=== PATIENT | female | born 1970 | race Caucasian/White ===

== ENCOUNTER 2016-06-17 15:06 | Emergency (ER) | payer OTHER ==
--- NOTE | 2016-06-17 15:34 | EDM.PDOC ---
ED HPI GI/ABDOMINAL - General Chief Complaint: Abdominal Pain Stated Complaint: ABDOMINAL PAIN Time Seen by Provider: 06/17/16 15:13 Source of Information: Reports: Patient History Limitations: Reports: No limitations - History of Present Illness INITIAL COMMENTS - FREE TEXT/NARRATIVE: History of present illness: [] Patient has a known history of gallbladder disease in started having abdominal pain left upper quadrant yesterday. Patient denies any fevers, chills , vomiting or diarrhea. She states she has had nausea. Patient cannot recall it being that brought this pain on and denies any trauma. Review of systems: As per history of present illness and below otherwise all systems reviewed and negative. Past medical history: As per history of present illness and as reviewed below otherwise noncontributory. Surgical history: As per history of present illness and as reviewed below otherwise noncontributory. Social history: No reported history of drug or alcohol abuse. Family history: As per history of present illness and as reviewed below otherwise noncontributory. Physical exam: General: Well developed, well nourished in NAD HEENT: Atraumatic, normocephalic, pupils reactive, negative for conjunctival pallor or scleral icterus, mucous membranes moist, throat clear, neck supple, nontender, trachea midline. Lungs: Clear to auscultation, breath sounds equal bilaterally, chest nontender. Heart: S1S2, regular, negative for clicks, rubs, or JVD. Abdomen: Soft, nondistended, tender in left upper quadrant without rebound or guarding. Negative for masses or hepatosplenomegaly. Negative for costovertebral tenderness. Pelvis: Stable nontender. Genitourinary: Deferred. Rectal: Deferred. Extremities: Atraumatic, negative for cords or calf pain. Neurovascular unremarkable. Neuro: Awake, alert, oriented. Cranial nerves II through XII unremarkable. Cerebellum unremarkable. Motor and sensory unremarkable throughout. Exam nonfocal. Diagnostics: [] Labs and ultrasound negative for cholecystitis questionable gallstone polyps versus stones Therapeutics: [] Tramadol for pain Impression: [] Cholelithiasis Plan: [] Followup Gen. surgery Definitive disposition and diagnosis as appropriate pending reevaluation and review of above. - Related Data Allergies/ADRs: Allergies Allergy/AdvReac Type Severity Reaction Status Date / Time Latex, Natural Rubber Allergy Burning Verified 06/17/16 15:22 Sulfa (Sulfonamide Allergy Cannot Verified 06/17/16 15:22 Antibiotics) Remember Home Meds: Home Meds SUMAtriptan [Imitrex] 0 mg PO ASDIRECTED PRN 04/17/14 [History] Zolpidem Tartrate [Ambien] 5 mg PO ASDIRECTED PRN 04/17/14 [History] DULoxetine [Cymbalta] 60 mg PO DAILY 06/17/16 [History] Lorcaserin HCl [Belviq Xr] 20 mg PO DAILY 06/17/16 [History] Metoprolol Succinate [Toprol XL 100mg] 100 mg PO DAILY 06/17/16 [History] traMADol HCl [Tramadol HCl] 50 mg PO Q6H PRN #16 tablet 06/17/16 [Rx] Past Medical History - Past Surgical History Other Musculoskeletal Surgeries/Procedures:: 3 foot surgeries in 2007, 2008, 2009 Social & Family History - Tobacco Use Smoking Status *Q: Current Every Day Smoker Years of Tobacco use: 15 Packs/Tins Daily: 0.5 Used Tobacco, but Quit: Yes Month Tobacco Last Used: 01/12/16 Second Hand Smoke Exposure: No - Caffeine Use Caffeine Use: Reports: Soda - Alcohol Use Days Per Week of Alcohol Use: 0 - Recreational Drug Use Recreational Drug Use: No ED ROS GENERAL - Review of Systems Review Of Systems: See Below (See history of present illness) ED EXAM, GI/ABD - Physical Exam Exam: See Below (See history of present illness) Course - Vital Signs Last Recorded V/S: Last Vital Signs Temp 37.3 C 06/17/16 15:29 Pulse 81 06/17/16 15:29 Resp 20 06/17/16 15:29 BP 135/81 06/17/16 15:29 Pulse Ox 98 06/17/16 15:29 - Orders/Labs/Meds Orders: Active Orders 24 hr Category Date Time Status Abdomen Ltd [US] Stat Exams 06/17/16 16:29 Taken UA W/MICROSCOPIC [URIN] Stat Lab 06/17/16 17:30 Received Sodium Chloride 0.9% [Normal Saline] 1,000 ml Med 06/17/16 15:45 Active IV .BOLUS Sodium Chloride 0.9% [Saline Flush] Med 06/17/16 15:39 Active 10 ml FLUSH ASDIRECTED PRN Sodium Chloride 0.9% [Saline Flush] Med 06/17/16 15:39 Active 2.5 ml FLUSH ASDIRECTED PRN Peripheral IV Insertion Adult [OM.PC] Stat Oth 06/17/16 15:38 Ordered Medication Orders Sodium Chloride (Normal Saline) 1,000 mls @ 999 mls/hr IV .BOLUS DULCE Last Admin: 06/17/16 16:06 Dose: 999 mls/hr Sodium Chloride (Saline Flush) 10 ml FLUSH ASDIRECTED PRN PRN Reason: Keep Vein Open Sodium Chloride (Saline Flush) 2.5 ml FLUSH ASDIRECTED PRN PRN Reason: Keep Vein Open Labs: Laboratory Tests 06/17/16 06/17/16 Range/Units 15:40 15:40 WBC 8.12 (4.0-11.0) K/uL RBC 4.48 (4.30-5.90) M/uL Hgb 12.3 (12.0-16.0) g/dL Hct 37.1 (36.0-46.0) % MCV 82.8 (80.0-98.0) fL MCH 27.5 (27.0-32.0) pg MCHC 33.2 (31.0-37.0) g/dL RDW Std Deviation 39.1 (28.0-62.0) fl RDW Coeff of Liz 13 (11.0-15.0) % Plt Count 260 (150-400) K/uL MPV 9.80 (7.40-12.00) fL Neut % (Auto) 55.3 (48.0-80.0) % Lymph % (Auto) 33.3 (16.0-40.0) % Garza % (Auto) 7.1 (0.0-15.0) % Eos % (Auto) 4.1 (0.0-7.0) % Baso % (Auto) 0.2 (0.0-1.5) % Neut # 4.5 (1.4-5.7) K/uL Lymph # 2.7 H (0.6-2.4) K/uL Garza # 0.6 (0.0-0.8) K/uL Eos # 0.3 (0.0-0.7) K/uL Baso # 0.0 (0.0-0.1) K/uL Nucleated RBC % 0.0 /100WBC Nucleated RBCs # 0 K/uL Sodium 139 (136-146) mmol/L Potassium 3.9 (3.5-5.1) mmol/L Chloride 108 (98-110) mmol/L Carbon Dioxide 22 (21-31) mmol/L BUN 15 (6.0-23.0) mg/dL Creatinine 0.9 (0.6-1.5) mg/dL Est Cr Clr Drug Dosing 83.36 mL/min Estimated GFR (MDRD) > 60.0 ml/min Glucose 91 (60-110) mg/dL Calcium 8.5 L (8.8-10.8) mg/dL Total Bilirubin 0.4 (0.1-1.5) mg/dL AST 20 (5-40) IU/L ALT 22 (8-54) IU/L Alkaline Phosphatase 82 (40-150) Total Protein 7.1 (6.0-8.0) g/dL Albumin 3.7 (3.5-5.0) g/dL Globulin 3.4 (2.0-3.5) g/dL Albumin/Globulin Ratio 1.1 L (1.3-2.8) Lipase 21 (7-80) U/L Meds: Medications Generic Name Dose Route Start Last Admin Trade Name Freq PRN Reason Stop Dose Admin Sodium Chloride 1,000 mls @ 999 mls/hr 06/17/16 15:45 06/17/16 16:06 Normal Saline IV 999 mls/hr .BOLUS DULCE Administration Sodium Chloride 10 ml 06/17/16 15:39 Saline Flush FLUSH ASDIRECTED PRN Keep Vein Open Sodium Chloride 2.5 ml 06/17/16 15:39 Saline Flush FLUSH ASDIRECTED PRN Keep Vein Open Discontinued Medications Generic Name Dose Route Start Last Admin Trade Name Freq PRN Reason Stop Dose Admin Hyoscyamine 0.125 mg 06/17/16 15:41 06/17/16 16:15 Hyomax-Sl SL 06/17/16 15:42 0.125 mg ONETIME ONE Administration Ondansetron HCl 4 mg 06/17/16 15:41 06/17/16 16:11 Zofran IVPUSH 06/17/16 15:42 4 mg ONETIME ONE Administration Departure - Departure Time of Disposition: 17:46 Disposition: Home, Self-Care 01 Condition: good Clinical Impression: Cholelithiasis Qualifiers: Cholelithiasis location: gallbladder Cholecystitis presence: without cholecystitis Biliary obstruction: without biliary obstruction Qualified Code(s) : K80.20 - Calculus of gallbladder without cholecystitis without obstruction Referrals: Candida Vidal DO [Primary Care Provider] - Forms: ED Department Discharge Additional Instructions: The following information is given to patients seen in the emergency department who are being discharged to home. This information is to outline your options for follow-up care. We provide all patients seen in our emergency department with a follow-up referral. The need for follow-up, as well as the timing and circumstances, are variable depending upon the specifics of your emergency department visit. If you don't have a primary care physician on staff, we will provide you with a referral. We always advise you to contact your personal physician following an emergency department visit to inform them of the circumstance of the visit and for follow-up with them and/or the need for any referrals to a consulting specialist. The emergency department will also refer you to a specialist when appropriate. This referral assures that you have the opportunity for follow-up care with a specialist. All of these measure are taken in an effort to provide you with optimal care, which includes your follow-up. Under all circumstances we always encourage you to contact your private physician who remains a resource for coordinating your care. When calling for follow-up care, please make the office aware that this follow-up is from your recent emergency room visit. If for any reason you are refused follow-up, please contact the [facility] Emergency Department at and asked to speak to the emergency department charge nurse. Tramadol for pain 16 tablets no refills [facility] [address] [place] [id number] - My Orders Last 24 Hours: My Active Orders 06/17/16 15:38 Peripheral IV Insertion Adult [OM.PC] Stat 06/17/16 15:39 Sodium Chloride 0.9% [Saline Flush] 10 ml FLUSH ASDIRECTED PRN Sodium Chloride 0.9% [Saline Flush] 2.5 ml FLUSH ASDIRECTED PRN 06/17/16 15:45 Sodium Chloride 0.9% [Normal Saline] 1,000 ml IV .BOLUS 06/17/16 16:29 Abdomen Ltd [US] Stat 06/17/16 17:30 UA W/MICROSCOPIC [URIN] Stat - Assessment/Plan Last 24 Hours: My Active Orders 06/17/16 15:38 Peripheral IV Insertion Adult [OM.PC] Stat 06/17/16 15:39 Sodium Chloride 0.9% [Saline Flush] 10 ml FLUSH ASDIRECTED PRN Sodium Chloride 0.9% [Saline Flush] 2.5 ml FLUSH ASDIRECTED PRN 06/17/16 15:45 Sodium Chloride 0.9% [Normal Saline] 1,000 ml IV .BOLUS 06/17/16 16:29 Abdomen Ltd [US] Stat 06/17/16 17:30 UA W/MICROSCOPIC [URIN] Stat
[2016-06-17] MEDS ORDERED: Sodium Chloride 0.9% 2.5 ML Syringe FLUSH PRN (15:39)
[2016-06-17] MEDS ORDERED: Sodium Chloride 0.9% 10 ML Syringe FLUSH PRN (15:39)
[2016-06-17] MEDS ORDERED: Ondansetron 4 MG/2 ML SDV IVPUSH ONE (15:41)
[2016-06-17] MEDS ORDERED: Hyoscyamine 0.125 MG Tab.SL SL ONE (15:41)
[2016-06-17] MEDS ORDERED: Sodium Chloride 0.9% 1,000 ML IV SCH (15:45)
[2016-06-17 16:17] LABS: CHLORIDE,CL 108 mmol/L (98-110); SODIUM,NA 139 mmol/L (136-146)
[2016-06-17] MEDS ORDERED: traMADol 50 MG Tab PO ONE (17:44)
[2016-06-17 17:55] VITALS: BP 158/73
--- NOTE | 2016-06-18 13:23 | US ---
EXAM DATE: 06/17/16 PATIENT'S AGE: 45 Patient: BRENT GARG Facility: [place], [place] Site . Site : 1970 Study: US Abdomen [id number]/7/2017 5:09:11 PM Ordering Physician: Marcus Wilkes Final Report: INDICATION: Right infrascapular pain. TECHNIQUE: Right upper quadrant ultrasound. COMPARISON: February 04, 2016. FINDINGS: Nonvisualization of the pancreas. There are multiple echogenic foci in the gallbladder some of which are very likely gallbladder polyps. The possibility of gallstones cannot be excluded. The images provided do not demonstrate movement of the echogenic foci. No sonographic Broussard`s sign. No gallbladder wall thickening. No pericholecystic fluid. No biliary dilatation. The common bile duct measures 3.4 mm. The gallbladder wall measures 1.8 mm. The liver appears to be of decreased echogenicity. This may be partly technical. The liver is measured at 20.1 cm in cephalocaudal extent which would suggest hepatomegaly. No right upper quadrant ascites. No right-sided hydronephrosis. The right kidney measures 12.3 x 5.1 x 5.3 cm. The visualized inferior vena cava is within normal limits. Nonvisualization of the aorta. IMPRESSION: 1. Multiple echogenic foci in the gallbladder. These could all reflect polyps. Stones cannot be excluded. 2. No sonographic Broussard`s sign. No biliary dilatation. No right upper quadrant ascites. 3. Possible hepatomegaly. 4. No right-sided hydronephrosis. Nonvisualization of the pancreas and abdominal aorta. Dictated by Lorenzo Pittman MD @ 06/17/2016 5:28:38 PM Dictated by: Lorenzo Pittman MD @ 06/17/2016 17:28:54 (Electronic Signature) Report Signed by Proxy and Original Signed Document filed in the Medical Record. [facility]ITAL[facility]
== END 2016-06-17 17:57 | disposition home or self-care (01) ==
LOC: MW.ED 15:06
DX: K80.20 Calculus of gallbladder without cholecystitis without obstruction (principal); F17.210 Nicotine dependence, cigarettes, uncomplicated; Z88.0 Allergy status to penicillin; Z91.040 Latex allergy status; Z79.899 Other long term (current) drug therapy
CPT/HCPCS: 76705; 80053; 81001; 83690; 85025; 96361; 96374; 99284; A9270; J2405; J7040

== ENCOUNTER 2016-06-30 06:21 | Day surgery (SDC) | payer OTHER ==
[~2016-06-30 06:21] MED LIST: Lactated Ringers 1,000 ML IV SCH; Sodium Chloride 0.9% 10 ML Syringe FLUSH PRN; Sodium Chloride 0.9% 2.5 ML Syringe FLUSH PRN; ceFAZolin 2 GM in Premix Bag 1 BAG IV ONE
[2016-06-30 06:43] VITALS: BP 147/77
[2016-06-30] MEDS ORDERED: Scopolamine 1.5 MG Transdermal Patch TRDERM PRN (06:57)
--- NOTE | 2016-06-30 07:05 | PCM.PREANE ---
Preanesthetic Assessment - Anesthesia/Transfusion/Family Hx Anesthesia History: Prior Anesthesia Without Reaction Other Type of Anesthesia Reaction Comment: states "woke up" during tonsillectomy as a child Family History of Anesthesia Reaction: No Transfusion History: No Prior Transfusion(s) - Review of Systems General: No Symptoms Pulmonary: No Symptoms Cardiovascular: No Symptoms Gastrointestinal: No symptoms Neurological: No Symptoms Other: Reports: None - Physical Assessment NPO Status Date: 06/30/16 NPO Status Time: 19:00 O2 Sat by Pulse Oximetry: 98 Respiratory Rate: 18 Vital Signs: Last Vital Signs Temp 36.7 C 06/30/16 06:41 Pulse 79 06/30/16 06:41 Resp 18 06/30/16 06:41 BP 147/77 H 06/30/16 06:41 Pulse Ox 98 06/30/16 06:41 Height: 1.75 m Weight: 119.748 kg ASA Class: 2 Mental Status: Alert & Oriented x3 Airway Class: Mallampati = 1 Dentition: Reports: Normal Dentition Lungs: Clear to auscultation Cardiovascular: Regular Rate - Allergies Allergies/Adverse Reactions: Allergies Allergy/AdvReac Type Severity Reaction Status Date / Time bupropion [From Wellbutrin] Allergy Rash Verified 06/26/16 14:50 Latex, Natural Rubber Allergy Burning Verified 06/17/16 15:22 Sulfa (Sulfonamide Allergy Cannot Verified 06/17/16 15:22 Antibiotics) Remember - Blood Blood Available: No - Anesthesia Plan Pre-Op Medication Ordered: None Beta Donna: Metoprolol Med Last Dose Date: 06/30/16 Med Last Dose Time: 07:30 - Acknowledgements Anesthesia Type Planned: General Anesthesia Pt an Appropriate Candidate for the Planned Anesthesia: Yes Alternatives and Risks of Anesthesia Discussed w Pt/Guardian: Yes Pt/Guardian Understands and Agrees with Anesthesia Plan: Yes PreAnesthesia Questionnaire Other HEENT History: wears glasses/contacts Cardiovascular History: Reports: Hypertension Other Cardiovascular History: hx of chest pain, had angiogram with no treatment....no chest pain since angiogram Respiratory History: Reports: Asthma, Sleep apnea Other Respiratory History: uses CPAP Gastrointestinal History: Reports: GERD Genitourinary History: Reports: None STONER HAND History: Reports: Other OB/BYN History: Ceasarean Section Musculoskeletal History: Reports: Fracture, Fibromyalgia Other Musculoskeletal History: left foot Neurological History: Reports: None Psychiatric History: Reports: Depression Endocrine/Metabolic History: Reports: Obesity/BMI 30+ Hematologic History: Reports: None Immunologic History: Reports: None Oncologic (Cancer) History: Reports: None Dermatologic History: Reports: None Other Dermatologic History: has dry, cracked hands - Past Surgical History Head Surgeries/Procedures: Reports: None HEENT Surgical History: Reports: Myringotomy w tube(s), Tonsillectomy Cardiovascular Surgical History: Reports: None Respiratory Surgical History: Reports: None Female Surgical History: Reports: section Endocrine Surgical History: Reports: None Neurological Surgical History: Reports: None Musculoskeletal Surgical History: Reports: ORIF Other Musculoskeletal Surgeries/Procedures:: left foot x3, has hardware implanted Oncologic Surgical History: Reports: None Dermatological Surgical History: Reports: None - SUBSTANCE USE Smoking Status *Q: Current Every Day Smoker Tobacco Use Within Last Twelve Months: Cigarettes Second Hand Smoke Exposure: No Days Per Week of Alcohol Use: 0 Recreational Drug Use History: No - HOME MEDS Home Medications: Home Meds Zolpidem Tartrate [Ambien] 10 mg PO BEDTIME PRN 04/17/14 [History] DULoxetine [Cymbalta] 60 mg PO DAILY 06/17/16 [History] Lorcaserin HCl [Belviq Xr] 20 mg PO DAILY 06/17/16 [History] Metoprolol Succinate [Toprol XL 100mg] 100 mg PO QAM 06/17/16 [History] Albuterol Sulfate [Proair Hfa] 2 puff INH DAILY PRN 06/26/16 [History] - CURRENT (IN HOUSE) MEDS Current Meds: Current Medications Lactated Ringer's (Ringers, Lactated) 1,000 mls @ 125 mls/hr IV ASDIRECTED DULCE Last Admin: 06/30/16 06:43 Dose: 125 mls/hr Scopolamine (Transderm-Scop) 1.5 mg TRDERM Q72H PRN PRN Reason: Nausea/Vomiting Sodium Chloride (Saline Flush) 10 ml FLUSH ASDIRECTED PRN PRN Reason: Keep Vein Open Sodium Chloride (Saline Flush) 2.5 ml FLUSH ASDIRECTED PRN PRN Reason: Keep Vein Open Discontinued Medications Cefazolin Sodium/Dextrose 2 gm (/ Premix) 50 mls @ 100 mls/hr IV ONETIME ONE Stop: 06/26/16 15:15 Preanesthetic Assessment - ANESTHESIA/TRANSFUSION/FAMILY HX Anesthesia/Transfusion History: Prior Anesthesia Other Type of Anesthesia Reaction Comment: states "woke up" during tonsillectomy as a child Family History of Anesthesia Reaction: No - PHYSICAL ASSESSMENT O2 Sat by Pulse Oximetry: 98 RR: 18 Vital Signs: Last Vital Signs Temp 36.7 C 06/30/16 06:41 Pulse 79 06/30/16 06:41 Resp 18 06/30/16 06:41 BP 147/77 H 06/30/16 06:41 Pulse Ox 98 06/30/16 06:41 Height: 1.75 m Weight: 119.748 kg - ALLERGIES Allergies/Adverse Reactions: Allergies Allergy/AdvReac Type Severity Reaction Status Date / Time bupropion [From Wellbutrin] Allergy Rash Verified 06/26/16 14:50 Latex, Natural Rubber Allergy Burning Verified 06/17/16 15:22 Sulfa (Sulfonamide Allergy Cannot Verified 06/17/16 15:22 Antibiotics) Remember
[2016-06-30] MEDS ORDERED: Midazolam 1 MG/ML 2 ML SDV ONE (07:10)
[2016-06-30] MEDS ORDERED: Rocuronium 10 MG/ML 10 ML Syringe ONE (07:10)
[2016-06-30] MEDS ORDERED: Ondansetron 4 MG/2 ML SDV ONE (07:10)
[2016-06-30] MEDS ORDERED: Propofol 200 MG/20 ML SDV ONE (07:10)
[2016-06-30] MEDS ORDERED: fentaNYL 250 MCG/5 ML SDV ONE (07:10)
[2016-06-30] MEDS ORDERED: Lidocaine 2% 5 ML SDV ONE (07:10)
[2016-06-30] MEDS ORDERED: Bupivacaine 0.5% 30 ML SDV ONE (07:26)
--- NOTE | 2016-06-30 07:34 | PCM.SN ---
- Free Text/Narrative Note: Review of medical record reveals cardiac workup in the fall of 2014 for chest pain, pt found to be in afib, had ant ischemia on stress test. had heart cath showing plaque, managed medically, unknown severity. Echo showed mod TR and Mod MR, with EF of 20% during afib. EF from stress test was 51%. Will cancel surgery today pending review of heart cath results from 2014, and a NEW cardiac ultrasound to follow up on the last EF of 21%. Pt clinically has > 4 METS activity, limited only by pain from foot surgery.
--- NOTE | 2016-06-30 08:21 | PCM.SN ---
- Free Text/Narrative Note: Discovered this am that patient had cardiac episode last fall. Patient was in atrial fibrillation and had an EF of 20-25%. She had a follow up angiogram that showed improved EF with a small area of anterior wall ischemia. There has been no follow up since. Given this is an elective procedure, I advised the patient to have an echo and pre-operative clearance before this procedure. If she develops overwhelming pain or jaundice in the meantime she should present to the ED to rule out choledocholithiasis.
--- NOTE | 2016-07-11 10:30 | PCM.HPR ---
H & P Addendum review - H & P Addendum Review Date of Original H & P: 06/27/16 Date Reviewed: 07/11/16 Time Reviewed: 10:00 Patient was examined: Changes (Please see H and P addendum in the chart.)
== END 2016-06-30 07:41 ==
LOC: MW.SDS 06:21
PROVIDERS: ATTEND Surgery
DX: K80.20 Calculus of gallbladder without cholecystitis without obstruction (principal); Z53.8 Procedure and treatment not carried out for other reasons; I48.91 Unspecified atrial fibrillation; I25.9 Chronic ischemic heart disease, unspecified; E66.9 Obesity, unspecified; F32.9 Major depressive disorder, single episode, unspecified; I10 Essential (primary) hypertension; G47.33 Obstructive sleep apnea (adult) (pediatric); J45.909 Unspecified asthma, uncomplicated; M79.7 Fibromyalgia; F17.210 Nicotine dependence, cigarettes, uncomplicated; Z88.2 Allergy status to sulfonamides; Z88.8 Allergy status to other drugs, medicaments and biological substances; Z91.040 Latex allergy status; Z99.89 Dependence on other enabling machines and devices; Z79.899 Other long term (current) drug therapy; Z98.890 Other specified postprocedural states; Z68.39 Body mass index [BMI] 39.0-39.9, adult
CPT/HCPCS: 81025; A9270; J7120; J2250; J2405; J2704; J3010

== ENCOUNTER → 2016-07-02 | Outpatient (CLI) | payer OTHER | LOC: MW.CHIM 06-30 11:18 | PROVIDERS: ATTEND Internal Medicine | DX: I48.91 Unspecified atrial fibrillation (principal) | CPT/HCPCS: 93005 ==

== ENCOUNTER → 2016-07-07 | Outpatient (CLI) | payer OTHER ==
--- NOTE | 2016-07-10 14:07 | ECHO ---
The echocardiogram report can be seen in this patient's EMR in the Reports section. PHILL
== END | disposition home or self-care (01) ==
LOC: MW.US 13:45
PROVIDERS: ATTEND Surgery
DX: I48.91 Unspecified atrial fibrillation (principal)
CPT/HCPCS: 93306

== ENCOUNTER 2016-07-14 06:29 | Day surgery (SDC) | payer OTHER ==
[~2016-07-14 06:29] MED LIST changes: -Sodium Chloride 0.9% 10 ML Syringe FLUSH PRN; -Sodium Chloride 0.9% 2.5 ML Syringe FLUSH PRN
[2016-07-14] MEDS ORDERED: Ondansetron 4 MG/2 ML SDV ONE (07:09)
[2016-07-14] MEDS ORDERED: Midazolam 1 MG/ML 2 ML SDV ONE (07:09)
[2016-07-14] MEDS ORDERED: fentaNYL 250 MCG/5 ML SDV ONE (07:09)
[2016-07-14] MEDS ORDERED: Rocuronium 10 MG/ML 10 ML Syringe ONE (07:09)
[2016-07-14] MEDS ORDERED: Lidocaine 2% 5 ML SDV ONE (07:09)
[2016-07-14] MEDS ORDERED: Propofol 200 MG/20 ML SDV ONE (07:09)
[2016-07-14] MEDS ORDERED: Succinylcholine/Normal Saline 200 MG/10 ML Syringe ONE (07:11)
[2016-07-14] MEDS ORDERED: Neostigmine Methylsulfate 1 MG/ML 5 ML Syringe ONE (07:11)
[2016-07-14] MEDS ORDERED: Citric Acid/Sodium Citrate Solution 30 ML Cup PO ONE (07:11)
--- NOTE | 2016-07-14 07:13 | PCM.PREANE ---
Preanesthetic Assessment - Anesthesia/Transfusion/Family Hx Anesthesia History: Prior Anesthesia Without Reaction Other Type of Anesthesia Reaction Comment: states "woke up" during tonsillectomy as a child Family History of Anesthesia Reaction: No Transfusion History: No Prior Transfusion(s) - Review of Systems General: No Symptoms Pulmonary: No Symptoms Cardiovascular: No Symptoms Gastrointestinal: No symptoms Neurological: No Symptoms Other: Reports: None - Physical Assessment NPO Status Date: 07/13/16 O2 Sat by Pulse Oximetry: 96 Respiratory Rate: 18 Vital Signs: Last Vital Signs Temp 36.9 C 07/14/16 06:46 Pulse 90 07/14/16 06:46 Resp 18 07/14/16 06:46 BP 143/92 H 07/14/16 06:46 Pulse Ox 96 07/14/16 06:46 Height: 1.75 m Weight: 119.748 kg ASA Class: 2 Mental Status: Alert & Oriented x3 Airway Class: Mallampati = 2 Dentition: Reports: Normal Dentition ROM/Head Extension: Full Lungs: Clear to auscultation, Normal respiratory effort Cardiovascular: Regular Rate, Regular Rhythm - Lab Values: Laboratory Last Values Urine HCG, Qual NEGATIVE (NEGATIVE) 07/14/16 06:40 - Allergies Allergies/Adverse Reactions: Allergies Allergy/AdvReac Type Severity Reaction Status Date / Time bupropion [From Wellbutrin] Allergy Rash Verified 06/26/16 14:50 Latex, Natural Rubber Allergy Burning Verified 06/17/16 15:22 Sulfa (Sulfonamide Allergy Hives Verified 07/10/16 08:44 Antibiotics) - Anesthesia Plan Pre-Op Medication Ordered: Antacids - Acknowledgements Anesthesia Type Planned: General Anesthesia Pt an Appropriate Candidate for the Planned Anesthesia: Yes Alternatives and Risks of Anesthesia Discussed w Pt/Guardian: Yes Pt/Guardian Understands and Agrees with Anesthesia Plan: Yes Additional Comments: Echo from last week showed 50-55% EF, normal valves. 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: Other OB/BYN History: Ceasarean Section Musculoskeletal History: Reports: Fracture, Fibromyalgia Other Musculoskeletal History: left foot Neurological History: Reports: None Psychiatric History: Reports: Depression Endocrine/Metabolic History: Reports: Obesity/BMI 30+ Hematologic History: Reports: None Immunologic History: Reports: None Oncologic (Cancer) History: Reports: None Dermatologic History: Reports: None Other Dermatologic History: has dry, cracked hands - Past Surgical History Head Surgeries/Procedures: Reports: None HEENT Surgical History: Reports: Myringotomy w tube(s), Tonsillectomy Cardiovascular Surgical History: Reports: None Respiratory Surgical History: Reports: None Female Surgical History: Reports: section Endocrine Surgical History: Reports: None Neurological Surgical History: Reports: None Musculoskeletal Surgical History: Reports: ORIF Other Musculoskeletal Surgeries/Procedures:: left foot x3, has hardware implanted Oncologic Surgical History: Reports: None Dermatological Surgical History: Reports: None - SUBSTANCE USE Smoking Status *Q: Current Every Day Smoker Tobacco Use Within Last Twelve Months: Cigarettes Second Hand Smoke Exposure: No Days Per Week of Alcohol Use: 0 Recreational Drug Use History: No - HOME MEDS Home Medications: Home Meds Zolpidem Tartrate [Ambien] 10 mg PO BEDTIME PRN 04/17/14 [History] DULoxetine [Cymbalta] 60 mg PO DAILY 06/17/16 [History] Lorcaserin HCl [Belviq Xr] 20 mg PO DAILY 06/17/16 [History] Metoprolol Succinate [Toprol XL 100mg] 50 mg PO QAM 06/17/16 [History] Albuterol Sulfate [Proair Hfa] 2 puff INH DAILY PRN 06/26/16 [History] Nitroglycerin 0.4 mg SL ASDIRECTED PRN 07/10/16 [History] SUMAtriptan [Imitrex] 1 tab PO ASDIRECTED PRN 07/10/16 [History] oxyCODONE HCl/Acetaminophen [oxyCODONE-Acetaminophen 5-325] 1 tab PO ASDIRECTED PRN 07/10/16 [History] - CURRENT (IN HOUSE) MEDS Current Meds: Current Medications Lactated Ringer's (Ringers, Lactated) 1,000 mls @ 125 mls/hr IV ASDIRECTED DULCE Last Admin: 07/14/16 06:49 Dose: 125 mls/hr Discontinued Medications Cefazolin Sodium/Dextrose 2 gm (/ Premix) 50 mls @ 100 mls/hr IV ONETIME ONE Stop: 07/11/16 13:20 Preanesthetic Assessment - ANESTHESIA/TRANSFUSION/FAMILY HX Anesthesia/Transfusion History: Prior Anesthesia Other Type of Anesthesia Reaction Comment: states "woke up" during tonsillectomy as a child Family History of Anesthesia Reaction: No - PHYSICAL ASSESSMENT O2 Sat by Pulse Oximetry: 96 RR: 18 Vital Signs: Last Vital Signs Temp 36.9 C 07/14/16 06:46 Pulse 90 07/14/16 06:46 Resp 18 07/14/16 06:46 BP 143/92 H 07/14/16 06:46 Pulse Ox 96 07/14/16 06:46 Height: 1.75 m Weight: 119.748 kg - LAB Values: Laboratory Last Values Urine HCG, Qual NEGATIVE (NEGATIVE) 07/14/16 06:40 - ALLERGIES Allergies/Adverse Reactions: Allergies Allergy/AdvReac Type Severity Reaction Status Date / Time bupropion [From Wellbutrin] Allergy Rash Verified 06/26/16 14:50 Latex, Natural Rubber Allergy Burning Verified 06/17/16 15:22 Sulfa (Sulfonamide Allergy Hives Verified 07/10/16 08:44 Antibiotics)
[2016-07-14] MEDS ORDERED: Bupivacaine 0.5% 30 ML SDV ONE (07:22)
[2016-07-14] MEDS ORDERED: Scopolamine 1.5 MG Transdermal Patch TOP ONE (07:30)
[2016-07-14 07:33] LABS: CHLORIDE,CL 107 mmol/L (98-110); SODIUM,NA 138 mmol/L (136-146)
[2016-07-14] MEDS ORDERED: ceFAZolin 1 GM Vial ONE (07:57)
[2016-07-14] MEDS ORDERED: Sodium Chloride 0.9% 20 ML ONE (07:57)
[2016-07-14] MEDS ORDERED: ePHEDrine 50 MG/ML SDV ONE (08:12)
[2016-07-14] MEDS ORDERED: Metoprolol Tartrate 5 MG/5 ML SDV ONE (08:36)
[2016-07-14] MEDS ORDERED: fentaNYL 100 MCG/2 ML SDV ONE (08:40)
--- NOTE | 2016-07-14 09:20 | PCM.OPNOTE ---
- General Post-Op/Procedure Note Date of Surgery/Procedure: 07/14/16 Operative Procedure(s): Laparoscopic cholecystectomy Findings: Normal appearing gallbladder Pre Op Diagnosis: Symptomatic cholelithiasis Post-Op Diagnosis: same Anesthesia Technique: General ET tube Primary Surgeon: Jolanta Akhtar Pathology: Gallbladder Fluid Replacement, Intraop: 2,100 Output, Urine Amount: 50 EBL in mLs: 5 Condition: Good
[2016-07-14] MEDS ORDERED: Cyclobenzaprine 5 MG Tab PO PRN (09:27)
[2016-07-14] MEDS ORDERED: Acetaminophen/oxyCODONE 325-5 MG Tab PO PRN (09:27)
[2016-07-14] MEDS: fentaNYL 100 MCG/2 ML SDV IVPUSH PRN ×6 (09:43→10:50)
--- NOTE | 2016-07-14 10:38 | PCM.POSTAN ---
POST ANESTHESIA ASSESSMENT - MENTAL STATUS Mental Status: alert, oriented - RESPIRATORY Respiratory Status: respiratory rate WNL, airway patent - CARDIOVASCULAR CV Status: pulse rate WNL, blood pressure stable - GASTROINTESTINAL GI Status: no symptoms - POST OP HYDRATION Hydration Status: adequate & stable
[2016-07-14 11:32] VITALS: BP 140/88
[2016-07-14] MEDS ORDERED: Ketorolac 30 MG/ML SDV IM ONE (12:15)
--- NOTE | 2016-07-14 13:17 | PCM48HPAN ---
Post Anesthesia Note - EVALUATION WITHIN 48HRS OF ANESTHETIC Vital Signs in Normal Range: Yes Patient Participated in Evaluation: Yes Respiratory Function Stable: Yes Airway Patent: Yes Cardiovascular Function Stable: Yes Hydration Status Stable: Yes Pain Control Satisfactory: Yes Nausea and Vomiting Control Satisfactory: Yes Mental Status Recovered: Yes
--- NOTE | 2016-07-14 14:16 | OR ---
SURGEON: LIANNA MOLINA MD DATE OF PROCEDURE: 07/14/2016 PREOPERATIVE DIAGNOSIS: Symptomatic cholelithiasis. POSTOPERATIVE DIAGNOSIS: Symptomatic cholelithiasis. PROCEDURE PERFORMED: Laparoscopic cholecystectomy. ANESTHESIA: General endotracheal anesthesia. FLUIDS: 2100 mL of crystalloid. URINE OUTPUT: 50 mL. ESTIMATED BLOOD LOSS: 5 mL. FINDINGS: Normal-appearing gallbladder, no acute inflammation. COMPLICATIONS: None. INDICATIONS: The patient is a 46-year-old female, who presented to clinic with right upper quadrant pain. She first developed symptoms back in January. Her symptoms resolved, but then reoccurred last month and have been unrelenting. She complains of right upper quadrant pain made worse after meals that radiates up to her back and into her right shoulder. She underwent a right upper quadrant ultrasound that showed multiple small masses in the gallbladder consistent with either stones or polyps. She has had a right upper quadrant ultrasound done prior to that, they showed cholelithiasis. She has had multiple labs drawn in the past which were all normal. The patient was scheduled to have surgery 2 weeks ago, but due to the need for cardiac work up her case was canceled. She then had preoperative clearance by Cardiology as well as her primary care provider. The patient and I discussed both the laparoscopic and open approach to removing her gallbladder. I explained that should I be unable to perform laparoscopically or proceed with open. We discussed the risks, including bleeding, infection, or damage to surrounding structures. The patient verbalized understanding and wishes to proceed. DESCRIPTION OF PROCEDURE: The patient was brought to the operating room and placed on the operating room table in supine position. A time-out was completed verifying the patient's name, age, date of , allergies, and procedure to be performed. General endotracheal anesthesia was induced. The left arm was tucked to the patient's side and a Saldaña catheter was placed. The abdomen was prepped and draped in the usual sterile fashion. At 0.5% Marcaine was used to anesthetize the infraumbilical skin crease. An #11-blade was used to make a 2 cm incision along this area. I used cautery to dissect down to the subcutaneous fat. S retractors were used to bluntly dissect down to the level of the fascia. The fascia was elevated with Radha's and incised with the Metzenbaum scissors and [id number] 0 Vicryl suture was then placed within the fascia. The underlying peritoneum was visualized, grasped with tonsil, and sharply incised with a Metzenbaum scissors. A 12 mm blunt tip trocar was then placed within the abdomen and the abdomen was insufflated to a pressure of 13 mmHg. A 5 mm 30- degree angled scope was then placed through the trocar and the area underneath the trocar placement site was inspected for any damage, none was noted. Three more 5-mm trocars were then placed under direct visualization within the abdomen. One was placed in the epigastric area. Two were then placed along the right subcostal margin. The patient was placed in reverse Trendelenburg position and airplaned slightly to the left. The dome of the gallbladder was grasped with an atraumatic grasper, placed through the lateral right-sided port and lifted caudally over the dome of the liver. This allowed visualization of the infundibulum of the gallbladder. This was grasped with a second atraumatic grasper placed through the 5 mm port along the midclavicular line. The gallbladder infundibulum was then gently retracted inferior and laterally. Using gentle blunt dissection and hook cautery, I dissected the peritoneum overlying the infundibulum to expose the critical structures. The critical view was achieved and pictures were taken. I was able to clearly identify the cystic duct and cystic artery as it ran into the gallbladder including the proximal third of the gallbladder plate. Once I was assured of my anatomy, 5 mm clips were then placed across the cystic duct and artery. Two clips were placed proximally and one distally on both structures. Using laparoscopic scissors, I then divided between the sasha leaving 2 sasha proximally on the cystic duct and artery. The gallbladder was then dissected free of the gallbladder fossa using electrocautery. The gallbladder was then removed from the abdomen through the 12 mm infraumbilical port site using an EndoCatch bag. The 12 mm port was then reinserted under direct visualization and I inspected the abdomen. There was no bleeding within the gallbladder fossa and the clips appeared to be intact proximally. The 5 mm trocars were then removed under direct visualization and no bleeding was noted. The 12 mm trocar was then removed and the abdomen allowed to completely desufflate. The previously placed [id number] 0 Vicryl suture was then tied in place. Another [id number] 0 Vicryl suture was placed proximal to this to completely close the anterior abdominal fascia. The infraumbilical port site was then closed with subcutaneous interrupted 3-0 Vicryl sutures. The skin overlying the area was closed with a running 4-0 Monocryl subcuticular suture. The three 5 mm port sites was closed with interrupted 4-0 Monocryl. Steri-Strips and sterile dressings were applied. Counts were complete and correct at the end of the case. The patient tolerated the procedure well and was taken to the PACU in stable condition. VLAD LARSON /[id number] PHILL
== END 2016-07-14 13:15 | disposition home or self-care (01) ==
LOC: MW.SDS 06:29
PROVIDERS: ATTEND Surgery
PROC: 0FT44ZZ Resection of Gallbladder, Percutaneous Endoscopic Approach (ICD-10-PCS; principal; 2016-07-14)
DX: K80.10 Calculus of gallbladder with chronic cholecystitis without obstruction (principal); I10 Essential (primary) hypertension; E66.01 Morbid (severe) obesity due to excess calories; G90.522 Complex regional pain syndrome I of left lower limb; G43.009 Migraine without aura, not intractable, without status migrainosus; G47.33 Obstructive sleep apnea (adult) (pediatric); F17.210 Nicotine dependence, cigarettes, uncomplicated; E78.5 Hyperlipidemia, unspecified; J45.20 Mild intermittent asthma, uncomplicated; G47.30 Sleep apnea, unspecified; K21.9 Gastro-esophageal reflux disease without esophagitis; M79.7 Fibromyalgia; Z98.51 Tubal ligation status; Z98.890 Other specified postprocedural states; Z79.899 Other long term (current) drug therapy; Z88.2 Allergy status to sulfonamides; Z88.8 Allergy status to other drugs, medicaments and biological substances; Z91.040 Latex allergy status; Z68.39 Body mass index [BMI] 39.0-39.9, adult
CPT/HCPCS: 36415; 47562; 80053; 81025; 88304; A9270; J0690; J1885; J2250; J2405; J3010; J7120; 00790; J2704

== ENCOUNTER 2016-10-26 11:41 | Emergency (ER) | payer OTHER ==
--- NOTE | 2016-10-26 12:00 | EDM.PDOC ---
ED HPI GENERAL MEDICAL PROBLEM - General Chief Complaint: Skin Complaint Stated Complaint: POSSIBLE SPIDER BITE/UNDER RT BREAST Time Seen by Provider: 10/26/16 11:50 Source of Information: Reports: Patient - History of Present Illness INITIAL COMMENTS - FREE TEXT/NARRATIVE: History of present illness: []Patient has a history of MRSA and was bitten by a spider yesterday under her right breast. Patient tried to open up the wound yesterday and is now red and tender. She denies any fevers but states she has had some nausea and vomiting this morning Review of systems: As per history of present illness and below otherwise all systems reviewed and negative. Past medical history: As per history of present illness and as reviewed below otherwise noncontributory. Surgical history: As per history of present illness and as reviewed below otherwise noncontributory. Social history: No reported history of drug or alcohol abuse. Family history: As per history of present illness and as reviewed below otherwise noncontributory. Physical exam: General: Well developed, well nourished in NAD HEENT: Atraumatic, normocephalic, pupils reactive, negative for conjunctival pallor or scleral icterus, mucous membranes moist, throat clear, neck supple, nontender, trachea midline. Lungs: Clear to auscultation, breath sounds equal bilaterally, chest nontender. 4 cm x 2 cm mildly erythematous area with 1 x 1 cm indurated area there is no drainage or fluctuance Heart: S1S2, regular, negative for clicks, rubs, or JVD. Abdomen: Soft, nondistended, nontender. Negative for masses or hepatosplenomegaly. Negative for costovertebral tenderness. Pelvis: Stable nontender. Genitourinary: Deferred. Rectal: Deferred. Extremities: Atraumatic, negative for cords or calf pain. Neurovascular unremarkable. Neuro: Awake, alert, oriented. Cranial nerves II through XII unremarkable. Cerebellum unremarkable. Motor and sensory unremarkable throughout. Exam nonfocal. Diagnostics: [] Therapeutics: [] Impression: []Spider bite with localized cellulitis Plan: []Doxycycline twice a day for 7 days Definitive disposition and diagnosis as appropriate pending reevaluation and review of above. right upper abdomen Pain Score (Numeric/FACES): 4 - Related Data Allergies Allergy/AdvReac Type Severity Reaction Status Date / Time bupropion [From Wellbutrin] Allergy Rash Verified 10/26/16 11:49 Latex, Natural Rubber Allergy Burning Verified 10/26/16 11:49 Sulfa (Sulfonamide Allergy Hives Verified 10/26/16 11:49 Antibiotics) Home Meds: Home Meds Zolpidem Tartrate [Ambien] 10 mg PO BEDTIME PRN 04/17/14 [History] DULoxetine [Cymbalta] 60 mg PO DAILY 06/17/16 [History] Lorcaserin HCl [Belviq Xr] 20 mg PO DAILY 06/17/16 [History] Metoprolol Succinate [Toprol XL 100mg] 50 mg PO QAM 06/17/16 [History] Albuterol Sulfate [Proair Hfa] 2 puff INH DAILY PRN 06/26/16 [History] Nitroglycerin 0.4 mg SL ASDIRECTED PRN 07/10/16 [History] SUMAtriptan [Imitrex] 1 tab PO ASDIRECTED PRN 07/10/16 [History] oxyCODONE HCl/Acetaminophen [oxyCODONE-Acetaminophen 5-325] 1 tab PO ASDIRECTED PRN 07/10/16 [History] Cyclobenzaprine [Flexeril] 5 mg PO TID PRN #30 tablet 07/14/16 [Rx] Ondansetron [IJD: Ondansetron ODT] 4 mg PO .EVERY 6 HOURS PRN #30 tab 07/14/16 [ Rx] oxyCODONE HCl/Acetaminophen [Percocet 5-325 mg Tablet] 1 each PO Q4HR PRN #60 tablet 07/14/16 [Rx] Doxycycline [Vibramycin] 100 mg PO Q12HR #20 cap 10/26/16 [Rx] Ondansetron HCl [Zofran] 4 mg PO Q6HR PRN #10 tablet 10/26/16 [Rx] Past Medical History - Past Health History Medical/Surgical History: Denies Medical/Surgical History Other HEENT History: wears glasses/contacts Cardiovascular History: Reports: Hypertension Other Cardiovascular History: hx of chest pain, had angiogram with no treatment....no chest pain since angiogram Respiratory History: Reports: Asthma, Sleep Apnea Other Respiratory History: uses CPAP Gastrointestinal History: Reports: GERD Genitourinary History: Reports: None 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: Other OB/BYN History: Ceasarean Section Musculoskeletal History: Reports: Fracture, Fibromyalgia Other Musculoskeletal History: left foot Neurological History: Reports: None Psychiatric History: Reports: Depression Endocrine/Metabolic History: Reports: Obesity/BMI 30+ Hematologic History: Reports: None Immunologic History: Reports: None Oncologic (Cancer) History: Reports: None Dermatologic History: Reports: None Other Dermatologic History: has dry, cracked hands - Past Surgical History Head Surgeries/Procedures: Reports: None HEENT Surgical History: Reports: Myringotomy w Tube(s), Tonsillectomy Cardiovascular Surgical History: Reports: None Female Surgical History: Reports: Section Endocrine Surgical History: Reports: None Neurological Surgical History: Reports: None Musculoskeletal Surgical History: Reports: ORIF Other Musculoskeletal Surgeries/Procedures:: left foot x3, has hardware implanted Oncologic Surgical History: Reports: None Dermatological Surgical History: Reports: None Social & Family History - Family History Family Medical History: Noncontributory - Tobacco Use Smoking Status *Q: Never Smoker Years of Tobacco use: 20 Packs/Tins Daily: 0.5 Used Tobacco, but Quit: Yes Month Tobacco Last Used: 01/12/16 Second Hand Smoke Exposure: No - Caffeine Use Caffeine Use: Reports: Soda - Alcohol Use Days Per Week of Alcohol Use: 0 - Recreational Drug Use Recreational Drug Use: No Drug Use in Last 12 Months: No ED ROS GENERAL - Review of Systems Review Of Systems: See Below (See history of present illness) ED EXAM, SKIN/RASH Exam: See Below (See history of present illness) Course - Vital Signs Last Recorded V/S: Last Vital Signs Temp 36.3 C 10/26/16 11:49 Pulse 89 10/26/16 11:49 Resp 18 10/26/16 11:49 BP 129/85 10/26/16 11:49 Pulse Ox 95 10/26/16 11:49 Departure - Departure Time of Disposition: 12:03 Disposition: Home, Self-Care 01 Condition: Good Clinical Impression: Insect bite Qualifiers: Encounter type: initial encounter Qualified Code(s): W57.XXXA - Bitten or stung by nonvenomous insect and other nonvenomous arthropods, initial encounter - Discharge Information Prescriptions: Ondansetron HCl [Zofran] 4 mg PO Q6HR PRN #10 tablet PRN Reason: Nausea Doxycycline [Vibramycin] 100 mg PO Q12HR #20 cap Referrals: Candida Vidal DO [Primary Care Provider] - Forms: ED Department Discharge Additional Instructions: The following information is given to patients seen in the emergency department who are being discharged to home. This information is to outline your options for follow-up care. We provide all patients seen in our emergency department with a follow-up referral. The need for follow-up, as well as the timing and circumstances, are variable depending upon the specifics of your emergency department visit. If you don't have a primary care physician on staff, we will provide you with a referral. We always advise you to contact your personal physician following an emergency department visit to inform them of the circumstance of the visit and for follow-up with them and/or the need for any referrals to a consulting specialist. The emergency department will also refer you to a specialist when appropriate. This referral assures that you have the opportunity for follow-up care with a specialist. All of these measure are taken in an effort to provide you with optimal care, which includes your follow-up. Under all circumstances we always encourage you to contact your private physician who remains a resource for coordinating your care. When calling for follow-up care, please make the office aware that this follow-up is from your recent emergency room visit. If for any reason you are refused follow-up, please contact the [facility] Emergency Department at and asked to speak to the emergency department charge nurse. Doxycycline twice a day for 10 days, warm compresses to area, Zofran for nausea [facility] [address] [place] [id number]
== END 2016-10-26 12:17 | disposition home or self-care (01) ==
LOC: MW.ED 11:41
CPT/HCPCS: 99282; 99283

== ENCOUNTER 2016-11-29 15:28 | Emergency (ER) | payer OTHER ==
--- NOTE | 2016-11-29 16:11 | EDM.PDOC ---
ED HPI GENERAL MEDICAL PROBLEM - General Chief Complaint: Bite:Animal, Insect Stated Complaint: SPIDER BITE Time Seen by Provider: 11/29/16 15:30 Source of Information: Reports: Patient History Limitations: Reports: No Limitations - History of Present Illness INITIAL COMMENTS - FREE TEXT/NARRATIVE: History of present illness: [46-year-old female presents with a blister on the right ankle. Patient indicates it was some nature of a bug bite that she sustained approximately 3 days ago. Patient indicates that the redness and swelling has progressively gotten worse over the last 3 days and that she had a similar bite on her abdomen just last month.] Review of systems: As per history of present illness and below otherwise all systems reviewed and negative. Past medical history: As per history of present illness and as reviewed below otherwise noncontributory. Surgical history: As per history of present illness and as reviewed below otherwise noncontributory. Social history: No reported history of drug or alcohol abuse. Family history: As per history of present illness and as reviewed below otherwise noncontributory. Physical exam: HEENT: Atraumatic, normocephalic, pupils reactive, negative for conjunctival pallor or scleral icterus, mucous membranes moist, throat clear, neck supple, nontender, trachea midline. Lungs: Clear to auscultation, breath sounds equal bilaterally, chest nontender. Heart: S1S2, regular, negative for clicks, rubs, or JVD. Abdomen: Soft, nondistended, nontender. Negative for masses or hepatosplenomegaly. Negative for costovertebral tenderness. Pelvis: Stable nontender. Genitourinary: Deferred. Rectal: Deferred. Extremities: Atraumatic, negative for cords or calf pain. Neurovascular unremarkable. Neuro: Awake, alert, oriented. Cranial nerves II through XII unremarkable. Cerebellum unremarkable. Motor and sensory unremarkable throughout. Exam nonfocal. Skin: Well circumscribed blister like area right over the right outer lateral malleolus with an area of erythema that extends into the dorsal aspect of the foot and up the lower lateral side of the leg. Patient states that she received doxycycline for last bite and it helped resolve the affected area quickly with minimal side effects. Diagnostics: [] Therapeutics: [] Impression: [Insect bite] Plan: [Repeat doxycycline] Definitive disposition and diagnosis as appropriate pending reevaluation and review of above. - Related Data Allergies Allergy/AdvReac Type Severity Reaction Status Date / Time bupropion [From Wellbutrin] Allergy Rash Verified 11/29/16 15:36 Latex, Natural Rubber Allergy Burning Verified 11/29/16 15:36 Sulfa (Sulfonamide Allergy Hives Verified 11/29/16 15:36 Antibiotics) Home Meds: Home Meds Zolpidem Tartrate [Ambien] 10 mg PO BEDTIME PRN 04/17/14 [History] DULoxetine [Cymbalta] 60 mg PO DAILY 06/17/16 [History] Metoprolol Succinate [Toprol XL 100mg] 50 mg PO QAM 06/17/16 [History] Albuterol Sulfate [Proair Hfa] 2 puff INH DAILY PRN 06/26/16 [History] Nitroglycerin 0.4 mg SL ASDIRECTED PRN 07/10/16 [History] SUMAtriptan [Imitrex] 1 tab PO ASDIRECTED PRN 07/10/16 [History] oxyCODONE HCl/Acetaminophen [oxyCODONE-Acetaminophen 5-325] 1 tab PO ASDIRECTED PRN 07/10/16 [History] Ondansetron [IJD: Ondansetron ODT] 4 mg PO .EVERY 6 HOURS PRN #30 tab 07/14/16 [ Rx] oxyCODONE HCl/Acetaminophen [Percocet 5-325 mg Tablet] 1 each PO Q4HR PRN #60 tablet 07/14/16 [Rx] Ondansetron HCl [Zofran] 4 mg PO Q6HR PRN #10 tablet 10/26/16 [Rx] Doxycycline [Vibramycin] 100 mg PO Q12HR #20 tablet 11/29/16 [Rx] Past Medical History - Past Health History Medical/Surgical History: Denies Medical/Surgical History HEENT History: Reports: Other (See Below) Other HEENT History: wears glasses/contacts Cardiovascular History: Reports: Hypertension Other Cardiovascular History: hx of chest pain, had angiogram with no treatment....no chest pain since angiogram Respiratory History: Reports: Asthma, Sleep Apnea Other Respiratory History: uses CPAP Gastrointestinal History: Reports: GERD Genitourinary History: Reports: None 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 OB/BYN History: Ceasarean Section Musculoskeletal History: Reports: Fracture, Fibromyalgia Other Musculoskeletal History: left foot Neurological History: Reports: None Psychiatric History: Reports: Depression Endocrine/Metabolic History: Reports: Obesity/BMI 30+ Hematologic History: Reports: None Immunologic History: Reports: None Oncologic (Cancer) History: Reports: None Dermatologic History: Reports: None Other Dermatologic History: has dry, cracked hands - Past Surgical History Head Surgeries/Procedures: Reports: None HEENT Surgical History: Reports: Myringotomy w Tube(s), Tonsillectomy Cardiovascular Surgical History: Reports: None GI Surgical History: Reports: Cholecystectomy Female Surgical History: Reports: Section Endocrine Surgical History: Reports: None Neurological Surgical History: Reports: None Musculoskeletal Surgical History: Reports: ORIF Other Musculoskeletal Surgeries/Procedures:: left foot x3, has hardware implanted Oncologic Surgical History: Reports: None Dermatological Surgical History: Reports: None Social & Family History - Family History Family Medical History: Noncontributory - Tobacco Use Smoking Status *Q: Never Smoker Years of Tobacco use: 20 Packs/Tins Daily: 0.5 Used Tobacco, but Quit: Yes Month Tobacco Last Used: 01/12/16 Second Hand Smoke Exposure: No - Caffeine Use Caffeine Use: Reports: None - Alcohol Use Days Per Week of Alcohol Use: 0 - Recreational Drug Use Recreational Drug Use: No Drug Use in Last 12 Months: No ED ROS GENERAL - Review of Systems Review Of Systems: See Below (History of present illness) ED EXAM, ANIMAL BITE - Physical Exam Exam: See Below (History of present illness) Course - Vital Signs Last Recorded V/S: Last Vital Signs Temp 36.3 C 11/29/16 15:38 Pulse 100 11/29/16 15:38 Resp 16 11/29/16 15:38 BP 134/75 11/29/16 15:38 Pulse Ox 95 11/29/16 15:38 Departure - Departure Time of Disposition: 16:08 Disposition: Home, Self-Care 01 Condition: Good Clinical Impression: Insect bite - Discharge Information Prescriptions: Doxycycline [Vibramycin] 100 mg PO Q12HR #20 tablet Forms: ED Department Discharge Additional Instructions: The following information is given to patients seen in the emergency department who are being discharged to home. This information is to outline your options for follow-up care. We provide all patients seen in our emergency department with a follow-up referral. The need for follow-up, as well as the timing and circumstances, are variable depending upon the specifics of your emergency department visit. If you don't have a primary care physician on staff, we will provide you with a referral. We always advise you to contact your personal physician following an emergency department visit to inform them of the circumstance of the visit and for follow-up with them and/or the need for any referrals to a consulting specialist. The emergency department will also refer you to a specialist when appropriate. This referral assures that you have the opportunity for follow-up care with a specialist. All of these measure are taken in an effort to provide you with optimal care, which includes your follow-up. Under all circumstances we always encourage you to contact your private physician who remains a resource for coordinating your care. When calling for follow-up care, please make the office aware that this follow-up is from your recent emergency room visit. If for any reason you are refused follow-up, please contact the [facility] Emergency Department at and asked to speak to the emergency department charge nurse. Take medication as directed Follow-up with PCP in 2-3 days Return to ED as needed as discussed
[2016-11-29 16:25] VITALS: BP 154/77
== END 2016-11-29 16:21 | disposition home or self-care (01) ==
LOC: MW.ED 15:28
DX: S30.861A Insect bite (nonvenomous) of abdominal wall, initial encounter (principal); I10 Essential (primary) hypertension; J45.909 Unspecified asthma, uncomplicated; K21.9 Gastro-esophageal reflux disease without esophagitis; E66.9 Obesity, unspecified; Z96.22 Myringotomy tube(s) status; Z88.8 Allergy status to other drugs, medicaments and biological substances; Z88.2 Allergy status to sulfonamides; Z91.040 Latex allergy status; Z79.899 Other long term (current) drug therapy; Z98.890 Other specified postprocedural states; Z90.49 Acquired absence of other specified parts of digestive tract; W57.XXXA Bitten or stung by nonvenomous insect and other nonvenomous arthropods, initial encounter; Z68.37 Body mass index [BMI] 37.0-37.9, adult
CPT/HCPCS: 99282; 99283

== ENCOUNTER 2017-11-03 19:22 | Emergency (ER) | payer SELFPAY ==
[2017-11-03] MEDS ORDERED: Ondansetron 4 MG Tab.DIS PO ONE (20:01)
[2017-11-03] MEDS ORDERED: HYDROmorphone 1 MG/ML Syringe IM ONE (20:01)
--- NOTE | 2017-11-03 20:04 | EDM.PDOC ---
ED HPI GENERAL MEDICAL PROBLEM - General Chief Complaint: Upper Extremity Injury/Pain Stated Complaint: PAIN LT SHOULDER Time Seen by Provider: 11/03/17 19:44 - History of Present Illness INITIAL COMMENTS - FREE TEXT/NARRATIVE: HISTORY AND PHYSICAL: History of present illness: Patient is 47-year-old female presents status post fall which he sustained a left facial laceration was no loss consciousness no nausea no vomiting no dizziness no neck pain or trauma no other trauma or concern Review of systems: As per history of present illness and below otherwise all systems reviewed and negative. Past medical history: As per history of present illness and as reviewed below otherwise noncontributory. Surgical history: As per history of present illness and as reviewed below otherwise noncontributory. Social history: No reported history of drug or alcohol abuse. Family history: As per history of present illness and as reviewed below otherwise noncontributory. Physical exam: HEENT: Approximately 4 cm moderate depth laceration to her left forehead no bony step-off noted fresheners good hemostasis, normocephalic, pupils reactive, negative for conjunctival pallor or scleral icterus, mucous membranes moist, throat clear, neck supple, nontender, trachea midline. Lungs: Clear to auscultation, breath sounds equal bilaterally, chest nontender. Heart: S1S2, regular, negative for clicks, rubs, or JVD. Abdomen: Soft, nondistended, nontender. Negative for masses or hepatosplenomegaly. Negative for costovertebral tenderness. Pelvis: Stable nontender. Genitourinary: Deferred. Rectal: Deferred. Extremities: Atraumatic, negative for cords or calf pain. Neurovascular unremarkable. Neuro: Awake, alert, oriented. Cranial nerves II through XII unremarkable. Cerebellum unremarkable. Motor and sensory unremarkable throughout. Exam nonfocal. Diagnostics: None Therapeutics: Tetanus update wound was anesthetized with 1% lidocaine without epinephrine irrigated with copious amounts 0.9 normal saline prepped and draped in a sterile manner and closed with 5-0 absorbable suture bacitracin was applied Impression: #1 facial laceration #2 minor head injury Definitive disposition and diagnosis as appropriate pending reevaluation and review of above. Left Shoulder Pain Score (Numeric/FACES): 5 - Related Data Allergies Allergy/AdvReac Type Severity Reaction Status Date / Time bupropion [From Wellbutrin] Allergy Rash Verified 11/03/17 19:35 Latex, Natural Rubber Allergy Burning Verified 11/03/17 19:35 Sulfa (Sulfonamide Allergy Hives Verified 11/03/17 19:35 Antibiotics) Home Meds: Home Meds Pantoprazole Sodium [Protonix] 40 mg PO BEDTIME 11/03/17 [History] Past Medical History - Past Health History Medical/Surgical History: Denies Medical/Surgical History HEENT History: Reports: Other (See Below) Other HEENT History: wears glasses/contacts Cardiovascular History: Reports: Hypertension Other Cardiovascular History: hx of chest pain, had angiogram with no treatment....no chest pain since angiogram Respiratory History: Reports: Asthma, Sleep Apnea Other Respiratory History: uses CPAP Gastrointestinal History: Reports: GERD Genitourinary History: Reports: None 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: Ceasarean Section Musculoskeletal History: Reports: Fracture, Fibromyalgia Other Musculoskeletal History: left foot Neurological History: Reports: None Psychiatric History: Reports: Depression Endocrine/Metabolic History: Reports: Obesity/BMI 30+ Hematologic History: Reports: None Immunologic History: Reports: None Oncologic (Cancer) History: Reports: None Dermatologic History: Reports: None Other Dermatologic History: has dry, cracked hands - Past Surgical History Head Surgeries/Procedures: Reports: None HEENT Surgical History: Reports: Myringotomy w Tube(s), Tonsillectomy Cardiovascular Surgical History: Reports: None GI Surgical History: Reports: Bariatric Procedure, Cholecystectomy Female Surgical History: Reports: Section Endocrine Surgical History: Reports: None Neurological Surgical History: Reports: None Musculoskeletal Surgical History: Reports: ORIF Other Musculoskeletal Surgeries/Procedures:: left foot x3, has hardware implanted Oncologic Surgical History: Reports: None Dermatological Surgical History: Reports: None Social & Family History - Family History Family Medical History: Noncontributory - Tobacco Use Smoking Status *Q: Never Smoker - Caffeine Use Caffeine Use: Reports: None - Recreational Drug Use Recreational Drug Use: No Review of Systems - Review of Systems Review Of Systems: ROS reveals no pertinent complaints other than HPI. ED EXAM, GENERAL - Physical Exam Exam: See Below (See dictation) Course - Vital Signs Last Recorded V/S: Last Vital Signs Temp 36.4 C 11/03/17 19:33 Pulse 84 11/03/17 19:33 Resp 18 07/24/18 19:33 BP 124/82 11/03/17 19:33 Pulse Ox 96 11/03/17 19:33 - Orders/Labs/Meds Orders: Active Orders 24 hr Category Date Time Status Shoulder Comp Lt [CR] Stat Exams 11/03/17 19:48 Ordered Departure - Departure Time of Disposition: 20:03 Disposition: Home, Self-Care 01 Condition: Good Clinical Impression: Head injury, Facial laceration - Discharge Information *PRESCRIPTION DRUG MONITORING PROGRAM REVIEWED*: Not Applicable *COPY OF PRESCRIPTION DRUG MONITORING REPORT IN PATIENT LESLIE: Not Applicable Referrals: PCP,None [Primary Care Provider] - Additional Instructions: The following information is given to patients seen in the emergency department who are being discharged to home. This information is to outline your options for follow-up care. We provide all patients seen in our emergency department with a follow-up referral. The need for follow-up, as well as the timing and circumstances, are variable depending upon the specifics of your emergency department visit. If you don't have a primary care physician on staff, we will provide you with a referral. We always advise you to contact your personal physician following an emergency department visit to inform them of the circumstance of the visit and for follow-up with them and/or the need for any referrals to a consulting specialist. The emergency department will also refer you to a specialist when appropriate. This referral assures that you have the opportunity for followup care with a specialist. All of these measure are taken in an effort to provide you with optimal care, which includes your followup. Under all circumstances we always encourage you to contact your private physician who remains a resource for coordinating your care. When calling for followup care, please make the office aware that this follow-up is from your recent emergency room visit. If for any reason you are refused follow-up, please contact the [facility] emergency department at and asked to speak to the emergency department charge nurse. Follow-up primary medical doctor as needed as discussed return as needed as discussed - My Orders Last 24 Hours: My Active Orders 11/03/17 19:48 Shoulder Comp Lt [CR] Stat - Assessment/Plan Last 24 Hours: My Active Orders 11/03/17 19:48 Shoulder Comp Lt [CR] Stat
[2017-11-03 20:43] VITALS: BP 112/69
--- NOTE | 2017-11-04 09:31 | CR ---
EXAM DATE: 11/03/17 PATIENT'S AGE: 47 Patient: BRENT GARG Facility: [place], [place] Site . Site : 1970 Study: XRay Shoulder Left [id number] 8:20:45 PM Ordering Physician: Jennifer Martin Final Report: INDICATION: Pain. Injury. COMPARISON: None. FINDINGS/IMPRESSION: Left shoulder, 3 views. No acute fracture or dislocation identified in the left shoulder. 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 A tiny periarticular calcification is seen anterior to the humeral head on the axillary view. Included left ribs appear intact. Dictated by Levi Trejo MD @ 11/03/2017 8:28:14 PM Dictated by: Levi Trejo MD @ 11/03/2017 20:28:26 (Electronic Signature) Report Signed by Proxy. PHILL
== END 2017-11-03 20:40 | disposition home or self-care (01) ==
LOC: MW.ED 19:22
DX: S49.92XA Unspecified injury of left shoulder and upper arm, initial encounter (principal); X50.0XXA Overexertion from strenuous movement or load, initial encounter
CPT/HCPCS: 73030; 96372; 99283; A9270; J1170

== ENCOUNTER 2018-08-25 20:42 | Emergency (ER) | payer SELFPAY ==
--- NOTE | 2018-08-25 21:02 | EDM.PDOC ---
ED HPI GENERAL MEDICAL PROBLEM - General Chief Complaint: ENT Problem Stated Complaint: SORE THROAT Time Seen by Provider: 08/25/18 21:01 Source of Information: Reports: Patient History Limitations: Reports: No Limitations - History of Present Illness INITIAL COMMENTS - FREE TEXT/NARRATIVE: HISTORY AND PHYSICAL: History of present illness: Patient is a 48-year-old female who presents to the emergency room with complaints of throat pain 2 days. She states she has had a temperature of 103 at home. She's been using Tylenol routinely to help with alleviate her symptoms and fever management. Over the past 12 hours she has noted a dry nonproductive cough. Patient denies any headache, change in vision, syncope or near syncope. Denies any chest pain, back pain, shortness of breath. Denies any abdominal pain , nausea, vomiting, diarrhea, constipation or dysuria. Patient has been eating and drinking appropriately. Review of systems: As per history of present illness and below otherwise all systems reviewed and negative. Past medical history: As per history of present illness and as reviewed below otherwise noncontributory. Surgical history: As per history of present illness and as reviewed below otherwise noncontributory. Social history: See social history for further information Family history: As per history of present illness and as reviewed below otherwise noncontributory. Physical exam: General: Well-developed and well-nourished 48-year-old female. Alert and oriented. Nontoxic appearing and in no acute distress. HEENT: Atraumatic, normocephalic, pupils equal and reactive bilaterally, negative for conjunctival pallor or scleral icterus, mucous membranes moist, TMs normal bilaterally, throat erythematous without exudate (no fullness or shifting), neck supple, nontender, trachea midline. No drooling or trismus noted. No meningeal signs. No hot potato voice noted. Lungs: Clear to auscultation, breath sounds equal bilaterally, chest nontender. Heart: S1S2, regular rate and rhythm without overt murmur Abdomen: Soft, nondistended, nontender. Skin: Intact, warm, dry. No lesions or rashes noted. Extremities: Atraumatic, moves all extremities per self without difficulty or deficits, negative for cords or calf pain. Neurovascular unremarkable. Neuro: Awake, alert, oriented. Cranial nerves II through XII unremarkable. Cerebellum unremarkable. Motor and sensory unremarkable throughout. Exam nonfocal. Notes: Patient is currently afebrile. We'll treat with Augmentin and Phenergan with codeine to alleviate her discomfort Supportive care measures were reviewed and discussed. Voices understanding and is agreeable to plan of care. Denies any further questions or concerns at this time. Diagnostics: None Therapeutics: None Prescription: Phenergan with codeine (#118 ml) Augmentin Impression: Pharyngitis Plan: 1. Use cough drops as needed for throat discomfort. Drink plenty of fluids to stay hydrated. 2. Take your medications as prescribed 3. Alternate Ibuprofen and Tylenol as needed for discomfort. 3. Follow up with your distribution coordinator or primary care provider. 4. Return to the ED as needed and as discussed. Definitive disposition and diagnosis as appropriate pending reevaluation and review of above. throat Pain Score (Numeric/FACES): 4 - Related Data Allergies Allergy/AdvReac Type Severity Reaction Status Date / Time bupropion [From Wellbutrin] Allergy Rash Verified 11/03/17 19:35 Latex, Natural Rubber Allergy Burning Verified 11/03/17 19:35 NSAIDS (Non-Steroidal Allergy Other Verified 08/25/18 21:09 Anti-Inflamma Sulfa (Sulfonamide Allergy Hives Verified 11/03/17 19:35 Antibiotics) Home Meds: Home Meds Pantoprazole Sodium [Protonix] 40 mg PO BEDTIME 11/03/17 [History] Amoxicillin/Clavulanate K [Augmentin 875-125 MG] 1 tab PO BID 10 Days #20 tablet 08/25/18 [Rx] Codeine/Promethazine [Phenergan with Codeine] 1 dose PO Q4HR PRN #118 ml [Rx] Past Medical History - Past Health History Medical/Surgical History: Denies Medical/Surgical History HEENT History: Reports: Other (See Below) Other HEENT History: wears glasses/contacts Cardiovascular History: Reports: Hypertension Other Cardiovascular History: hx of chest pain, had angiogram with no treatment....no chest pain since angiogram Respiratory History: Reports: Asthma, Sleep Apnea Other Respiratory History: uses CPAP Gastrointestinal History: Reports: GERD Genitourinary History: Reports: None 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 Musculoskeletal History: Reports: Fracture, Fibromyalgia Other Musculoskeletal History: left foot Neurological History: Reports: None Psychiatric History: Reports: Depression Endocrine/Metabolic History: Reports: Obesity/BMI 30+ Hematologic History: Reports: None Immunologic History: Reports: None Oncologic (Cancer) History: Reports: None Dermatologic History: Reports: None Other Dermatologic History: has dry, cracked hands - Past Surgical History Head Surgeries/Procedures: Reports: None HEENT Surgical History: Reports: Myringotomy w Tube(s), Tonsillectomy Cardiovascular Surgical History: Reports: None GI Surgical History: Reports: Bariatric Procedure, Cholecystectomy Female Surgical History: Reports: Section Endocrine Surgical History: Reports: None Neurological Surgical History: Reports: None Musculoskeletal Surgical History: Reports: ORIF Other Musculoskeletal Surgeries/Procedures:: left foot x3, has hardware implanted Oncologic Surgical History: Reports: None Dermatological Surgical History: Reports: None Social & Family History - Family History Family Medical History: Noncontributory - Caffeine Use Caffeine Use: Reports: None ED ROS ENT - Review of Systems Review Of Systems: ROS reveals no pertinent complaints other than HPI. ED EXAM, ENT - Physical Exam Exam: See Below (See dictation) Course - Vital Signs Last Recorded V/S: Last Vital Signs Temp 98.2 F 08/25/18 21:07 Pulse 85 08/25/18 21:07 Resp 17 08/25/18 21:07 BP 133/83 08/25/18 21:07 Pulse Ox 98 08/25/18 21:07 Departure - Departure Time of Disposition: 21:12 Disposition: Home, Self-Care 01 Clinical Impression: Pharyngitis Qualifiers: Pharyngitis/tonsillitis etiology: unspecified etiology Qualified Code(s): J02.9 - Acute pharyngitis, unspecified - Discharge Information Prescriptions: Codeine/Promethazine [Phenergan with Codeine] 1 dose PO Q4HR PRN #118 ml PRN Reason: Cough Amoxicillin/Clavulanate K [Augmentin 875-125 MG] 1 tab PO BID 10 Days #20 tablet Instructions: Pharyngitis, [id number] Referrals: Sharath Clements MD [Primary Care Provider] - Forms: ED Department Discharge Additional Instructions: The following information is given to patients seen in the emergency department who are being discharged to home. This information is to outline your options for follow-up care. We provide all patients seen in our emergency department with a follow-up referral. The need for follow-up, as well as the timing and circumstances, are variable depending upon the specifics of your emergency department visit. If you don't have a primary care physician on staff, we will provide you with a referral. We always advise you to contact your personal physician following an emergency department visit to inform them of the circumstance of the visit and for follow-up with them and/or the need for any referrals to a consulting specialist. The emergency department will also refer you to a specialist when appropriate. This referral assures that you have the opportunity for follow-up care with a specialist. All of these measure are taken in an effort to provide you with optimal care, which includes your follow-up. Under all circumstances we always encourage you to contact your private physician who remains a resource for coordinating your care. When calling for follow-up care, please make the office aware that this follow-up is from your recent emergency room visit. If for any reason you are refused follow-up, please contact the Emergency Department at and asked to speak to the emergency department charge nurse. Primary Care [address] [place] [address] [place] [address] 1. Use cough drops as needed for throat discomfort. Drink plenty of fluids to stay hydrated. 2. Take your medications as prescribed 3. Alternate Ibuprofen and Tylenol as needed for discomfort. 3. Follow up with your distribution coordinator or primary care provider. 4. Return to the ED as needed and as discussed.
[2018-08-25 21:09] VITALS: BP 133/83
== END 2018-08-25 21:22 | disposition home or self-care (01) ==
LOC: MW.ED 20:42
DX: J02.9 Acute pharyngitis, unspecified (principal); I10 Essential (primary) hypertension; K21.9 Gastro-esophageal reflux disease without esophagitis; F32.9 Major depressive disorder, single episode, unspecified; Z88.8 Allergy status to other drugs, medicaments and biological substances; Z91.040 Latex allergy status; Z88.2 Allergy status to sulfonamides; Z79.899 Other long term (current) drug therapy
CPT/HCPCS: 99282

== ENCOUNTER 2019-09-15 18:54 | Emergency (ER) | payer SELFPAY ==
--- NOTE | 2019-09-15 19:13 | EDM.PDOC ---
ED HPI GENERAL MEDICAL PROBLEM - General Chief Complaint: Back Pain or Injury Stated Complaint: BACK PAIN,INSECT BITE ON BACK Time Seen by Provider: 09/15/19 19:11 Source of Information: Reports: Patient History Limitations: Reports: No Limitations - History of Present Illness INITIAL COMMENTS - FREE TEXT/NARRATIVE: HISTORY AND PHYSICAL: History of present illness: Patient is a 49-year-old female who presents to the emergency room with complaints of right shoulder pain that has been ongoing for approximately 1 to 2 weeks. She is describes the pain as a sharp burning discomfort and compared it to gallbladder pain, although she has had a cholecystectomy. A few days ago she had noticed some blistery type rash to her right shoulder blade near the area of discomfort and thought maybe she had been bitten by a spider. She does take chronic pain medication on a daily basis for previous foot surgeries. The medication "helps for a little bit but returns within 30 to 45 minutes". Over the past few days she has noticed pink-tinged urine when wiping; although has not had any dysuria, frequency, vaginal discharge/irritation, or injury. She denies any recent illness or systemic complaints. Patient denies any fever, chills, headache, change in vision, syncope or near syncope. Denies any chest pain, shortness of breath or cough. Denies any GI or symptoms. Patient has been eating and drinking appropriately. Review of systems: As per history of present illness and below otherwise all systems reviewed and negative. Past medical history: As per history of present illness and as reviewed below otherwise noncontributory. Surgical history: As per history of present illness and as reviewed below otherwise noncontributory. Social history: See social history for further information Family history: As per history of present illness and as reviewed below otherwise noncontributory. Physical exam: General: Well-developed and well-nourished 49-year-old female. Alert and oriented. Nontoxic-appearing and in no acute distress. HEENT: Atraumatic, normocephalic, pupils equal and reactive bilaterally, negative for conjunctival pallor or scleral icterus, mucous membranes moist, TMs normal bilaterally, throat clear, neck supple, nontender, trachea midline. No drooling or trismus noted. No meningeal signs. No hot potato voice noted. Lungs: Clear to auscultation, breath sounds equal bilaterally, chest nontender. Heart: S1S2, regular rate and rhythm without overt murmur Abdomen: Soft, nondistended, nontender. Negative for masses or costovertebral tenderness. Skin: Multiple vesicles noted in a circular pattern to the right shoulder blade , fluid-filled. Does appear to be a shingles lesion. Otherwise remaining skin is intact, warm, dry. No lesions or rashes noted. Extremities: Atraumatic, moves all extremities per self without difficulty or deficits, negative for cords or calf pain. Neurovascular unremarkable. Neuro: Awake, alert, oriented. Cranial nerves II through XII unremarkable. Cerebellum unremarkable. Motor and sensory unremarkable throughout. Exam nonfocal. Notes: Medication, follow up care, and supportive care measures were reviewed and discussed. Voices understanding and is agreeable to plan of care. Denies any further questions or concerns at this time. Diagnostics: [employer]: Lidoderm, Valacyclovir Prescription: Lidoderm, Valacyclovir, Macrobid Impression: Shingles UTI Plan: 1. The rash you have is consistent with shingles (adult chicken pox). Antivirals shorten the duration of viral shedding, stop the formation of new lesions and reduce pain severity. Make sure you keep the area covered as this can be contagious. 2. You can take Tylenol and/or ibuprofen as needed for pain management. You have oxycodone available to you at home, this would be the strongest medication available here through the ER. We will give you a prescription for some topical lidocaine that can be used as needed for topical pain relief. 3. Follow-up with your primary care provider for further evaluation and management of this. Return to the ED as needed and as discussed. Definitive disposition and diagnosis as appropriate pending reevaluation and review of above. back area Pain Score (Numeric/FACES): 5 - Related Data Allergies Allergy/AdvReac Type Severity Reaction Status Date / Time bupropion [From Wellbutrin] Allergy Rash Verified 09/15/19 19:13 Latex, Natural Rubber Allergy Burning Verified 09/15/19 19:13 NSAIDS (Non-Steroidal Allergy Other Verified 09/15/19 19:13 Anti-Inflamma Sulfa (Sulfonamide Allergy Hives Verified 09/15/19 19:13 Antibiotics) Home Meds: Home Meds Lidocaine 5% [Lidoderm 5%] 1 patch TOP DAILY 5 Days #5 patch 06/04/20 [Rx] valACYclovir [Valtrex] 1,000 mg PO TID 7 Days #21 tab 09/15/19 [Rx] Past Medical History - Past Health History Medical/Surgical History: Denies Medical/Surgical History HEENT History: Reports: Other (See Below) Other HEENT History: wears glasses/contacts Cardiovascular History: Reports: Hypertension Other Cardiovascular History: hx of chest pain, had angiogram with no treatment....no chest pain since angiogram Respiratory History: Reports: Asthma, Sleep Apnea Other Respiratory History: uses CPAP Gastrointestinal History: Reports: GERD Genitourinary History: Reports: None 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 Musculoskeletal History: Reports: Fracture, Fibromyalgia Other Musculoskeletal History: left foot Neurological History: Reports: None Psychiatric History: Reports: Depression Endocrine/Metabolic History: Reports: Obesity/BMI 30+ Hematologic History: Reports: None Immunologic History: Reports: None Oncologic (Cancer) History: Reports: None Dermatologic History: Reports: None Other Dermatologic History: has dry, cracked hands - Infectious Disease History Infectious Disease History: Reports: Chicken Pox, MRSA - Past Surgical History Head Surgeries/Procedures: Reports: None HEENT Surgical History: Reports: Myringotomy w Tube(s), Tonsillectomy Cardiovascular Surgical History: Reports: None GI Surgical History: Reports: Bariatric Procedure, Cholecystectomy Female Surgical History: Reports: Section Endocrine Surgical History: Reports: None Neurological Surgical History: Reports: None Musculoskeletal Surgical History: Reports: ORIF Other Musculoskeletal Surgeries/Procedures:: left foot x3, has hardware implanted Oncologic Surgical History: Reports: None Dermatological Surgical History: Reports: None Social & Family History - Family History Family Medical History: Noncontributory - Caffeine Use Caffeine Use: Reports: None ED ROS GENERAL - Review of Systems Review Of Systems: Comprehensive ROS is negative, except as noted in HPI. ED EXAM,LOWER BACK PAIN/INJURY - Physical Exam Exam: See Below (See dictation) Course - Vital Signs Last Recorded V/S: Last Vital Signs Temp 97.6 F 09/15/19 19:10 Pulse 82 09/15/19 19:10 Resp 18 09/15/19 19:10 BP 130/81 09/15/19 19:10 Pulse Ox 98 09/15/19 19:10 - Orders/Labs/Meds Labs: Laboratory Tests 09/15/19 Range/Units 19:10 Urine Color YELLOW Urine Appearance SLT CLOUDY Urine pH 7.0 (5.0-8.0) Ur Specific Wister 1.025 (1.001-1.035) Urine Protein NEGATIVE (NEGATIVE) mg/dL Urine Glucose (UA) NEGATIVE (NEGATIVE) mg/dL Urine Ketones NEGATIVE (NEGATIVE) mg/dL Urine Occult Blood LARGE H (NEGATIVE) Urine Nitrite NEGATIVE (NEGATIVE) Urine Bilirubin NEGATIVE (NEGATIVE) Urine Urobilinogen 0.2 (<2.0) EU/dL Ur Leukocyte Esterase NEGATIVE (NEGATIVE) Urine RBC 3-4 (0-2/HPF) Urine WBC 1-3 (0-5/HPF) Ur Epithelial Cells FEW (NONE-FEW) Amorphous Sediment FEW (NEGATIVE) Urine Bacteria FEW (NEGATIVE) Urine Mucus FEW (NONE-MOD) Meds: Medications Discontinued Medications Generic Name Dose Route Start Last Admin Trade Name Freq PRN Reason Stop Dose Admin Lidocaine 700 mg 09/15/19 19:31 09/15/19 19:35 Lidoderm 5% TOP 09/15/19 19:32 700 mg ONETIME ONE Administration Lidocaine Confirm 09/15/19 19:31 09/15/19 19:37 Lidoderm 5% Administered 09/15/19 19:32 Not Given Dose 700 mg .ROUTE .STK-MED ONE Lidocaine HCl 1 gm 09/15/19 19:21 09/15/19 19:37 Lidocaine 5% TOP 09/15/19 19:22 Not Given ONETIME ONE Valacyclovir HCl 1,000 mg 09/15/19 19:19 09/15/19 19:35 Valtrex PO 09/15/19 19:20 1,000 mg ONETIME ONE Administration Departure - Departure Time of Disposition: 19:39 Disposition: Home, Self-Care 01 Clinical Impression: Shingles Qualifiers: Herpes zoster complications: without complications Qualified Code(s): B02.9 - Zoster without complications UTI (urinary tract infection) Qualifiers: Urinary tract infection type: acute cystitis Hematuria presence: with hematuria Qualified Code(s): N30.01 - Acute cystitis with hematuria - Discharge Information Prescriptions: Lidocaine 5% [Lidoderm 5%] 1 patch TOP DAILY 5 Days #5 patch valACYclovir [Valtrex] 1,000 mg PO TID 7 Days #21 tab Instructions: Shingles, [id number], Urinary Tract Infection, Adult, Easy-to- Read Referrals: Candida Vidal DO [Primary Care Provider] - Forms: ED Department Discharge Additional Instructions: The following information is given to patients seen in the emergency department who are being discharged to home. This information is to outline your options for follow-up care. We provide all patients seen in our emergency department with a follow-up referral. The need for follow-up, as well as the timing and circumstances, are variable depending upon the specifics of your emergency department visit. If you don't have a primary care physician on staff, we will provide you with a referral. We always advise you to contact your personal physician following an emergency department visit to inform them of the circumstance of the visit and for follow-up with them and/or the need for any referrals to a consulting specialist. The emergency department will also refer you to a specialist when appropriate. This referral assures that you have the opportunity for follow-up care with a specialist. All of these measure are taken in an effort to provide you with optimal care, which includes your follow-up. Under all circumstances we always encourage you to contact your private physician who remains a resource for coordinating your care. When calling for follow-up care, please make the office aware that this follow-up is from your recent emergency room visit. If for any reason you are refused follow-up, please contact the [facility] Emergency Department at and asked to speak to the emergency department charge nurse. [facility] [address] [place] [id number] [id number] 1. The rash you have is consistent with shingles (adult chicken pox). Antivirals shorten the duration of viral shedding, stop the formation of new lesions and reduce pain severity. Make sure you keep the area covered as this can be contagious. 2. You can take Tylenol and/or ibuprofen as needed for pain management. You have oxycodone available to you at home, this would be the strongest medication available here through the ER. We will give you a prescription for some topical lidocaine that can be used as needed for topical pain relief. 3. Follow-up with your primary care provider for further evaluation and management of this. Return to the ED as needed and as discussed. Sepsis Event Note - Focused Exam Vital Signs: Vital Signs Temp Pulse Resp BP Pulse Ox 09/15/19 19:10 97.6 F 82 18 130/81 98 Date Exam was Performed: 09/15/19 Time Exam was Performed: 19:39
[2019-09-15] MEDS ORDERED: valACYclovir 500 MG Tab PO ONE (19:19)
[2019-09-15] MEDS ORDERED: Lidocaine 5% Oint 35.44 GM Tube TOP ONE (19:21)
[2019-09-15] MEDS ORDERED: Lidocaine 5% 700 MG Patch TOP ONE (19:31)
[2019-09-15] MEDS ORDERED: Lidocaine 5% 700 MG Patch ONE (19:31)
[2019-09-15 19:59] VITALS: BP 134/83; PULSE 78
== END 2019-09-15 19:55 | disposition home or self-care (01) ==
LOC: MW.ED 18:54
DX: B02.9 Zoster without complications (principal); N30.01 Acute cystitis with hematuria; I10 Essential (primary) hypertension; E66.9 Obesity, unspecified; Z88.2 Allergy status to sulfonamides; Z91.040 Latex allergy status; Z88.6 Allergy status to analgesic agent; Z88.8 Allergy status to other drugs, medicaments and biological substances; Z68.29 Body mass index [BMI] 29.0-29.9, adult
CPT/HCPCS: 81001; 99283; A9270

== ENCOUNTER 2021-06-10 07:43 | Day surgery (SDC) | payer BC ==
[~2021-06-10 07:43] MED LIST changes: +Sodium Chloride 0.9% 10 ML Syringe FLUSH PRN; +Sodium Chloride 0.9% 2.5 ML Syringe FLUSH PRN; +Sodium Chloride 0.9% 20 ML SDV IV PRN; -ceFAZolin 2 GM in Premix Bag 1 BAG IV ONE
[2021-06-10] MEDS ORDERED: Propofol 200 MG/20 ML SDV ONE ×2 (11:10→12:20)
[2021-06-10] MEDS ORDERED: Ondansetron 4 MG/2 ML SDV ONE (11:10)
[2021-06-10] MEDS ORDERED: fentaNYL 100 MCG/2 ML SDV ONE (11:10)
[2021-06-10] MEDS ORDERED: Lidocaine 2% 5 ML SDV ONE (11:11)
[2021-06-10] MEDS ORDERED: Glycopyrrolate 0.2 MG/ML SDV ONE (12:04)
[2021-06-10 13:31] VITALS: BP 155/90; PULSE 109
== END 2021-06-10 13:52 | disposition home or self-care (01) ==
LOC: MW.SDS 07:43
PROVIDERS: ATTEND Surgery
DX: D12.5 Benign neoplasm of sigmoid colon (principal); J45.909 Unspecified asthma, uncomplicated; F32.A Depression, unspecified; I10 Essential (primary) hypertension; E66.9 Obesity, unspecified; G47.33 Obstructive sleep apnea (adult) (pediatric); Z91.040 Latex allergy status; Z88.2 Allergy status to sulfonamides; Z88.8 Allergy status to other drugs, medicaments and biological substances; Z79.899 Other long term (current) drug therapy; Z98.890 Other specified postprocedural states; Z98.84 Bariatric surgery status; Z90.49 Acquired absence of other specified parts of digestive tract
CPT/HCPCS: 43239; 45380; J2405; J2704; J3010; J3490; J7120; 00813

== ENCOUNTER 2022-03-08 19:55 | Emergency (ER) | payer BC ==
[2022-03-08 20:50] VITALS: BP 132/85; PULSE 71
== END 2022-03-08 20:50 | disposition home or self-care (01) ==
LOC: MW.ED 19:55
DX: M25.512 Pain in left shoulder (principal); I10 Essential (primary) hypertension; E66.9 Obesity, unspecified; Z68.26 Body mass index [BMI] 26.0-26.9, adult; Z91.040 Latex allergy status; Z88.8 Allergy status to other drugs, medicaments and biological substances; X50.1XXA Overexertion from prolonged static or awkward postures, initial encounter
CPT/HCPCS: 99283